=== PATIENT | male | born 1985 | race Caucasian/White ===

== ENCOUNTER → 2016-10-31 | Outpatient (REF) | payer OTHER ==
[2016-10-31 12:17] LABS: ADD MANUAL DIFFER YES; MEAN CORPUSCULAR HGB CONC 36.5 g/dl (32.0-36.5); MEAN CORPUSCULAR VOLUME 84.9 fl (80.0-96.0); RED CELL DISTRIBUTION WIDTH 13.2 % (11.5-14.5); WHITE BLOOD COUNT 7.8 K/mm3 (4.0-10.0)
[2016-10-31 13:03] LABS: HEPATITIS B SURFACE ANTIBODY POSITIVE (POSITIVE)
[2016-10-31 13:25] LABS: ALBUMIN 3.9 GM/DL (3.2-5.2); ALBUMIN/GLOBULIN RATIO 1.08 (1.00-1.93); ALKALINE PHOSPHATASE 76 U/L (45-117); ALT/SGPT 139 U/L (12-78); ANION GAP 8 MEQ/L (8-16); AST/SGOT 42 U/L (15-37); BILIRUBIN,TOTAL 0.3 MG/DL (0.2-1.0); BLOOD UREA NITROGEN 15 MG/DL (7-18); CALCIUM LEVEL 8.8 MG/DL (8.5-10.1); CARBON DIOXIDE LEVEL 24 MEQ/L (21-32); CHLORIDE LEVEL 109 MEQ/L (98-107); CREATININE FOR GFR 0.78 MG/DL (0.70-1.30); GLOMERULAR FILTRATION RATE > 60.0 (>60); GLUCOSE, FASTING 101 MG/DL (70-105); POTASSIUM SERUM 4.4 MEQ/L (3.5-5.1); SODIUM LEVEL 141 MEQ/L (136-145); TOTAL PROTEIN 7.5 GM/DL (6.4-8.2)
[2016-10-31 13:35] LABS: BASOPHILS 2 % (0-4); EOSINOPHILS 2 % (0-5)
[2016-11-05 00:06] LABS: ALT 126 IU/L (0-55); GGT 35 IU/L (0-65); HAPTOGLOBIN 111 mg/dL (34-200); HEPATITIS C QUANTITATION 149290 IU/mL (.); HEPATITIS C VIRUS GENOTYPE 3 (.); NECROINFLAM SCORE 0.58 (0.00-0.17); NECROINFLAMM GRADE A2-Moderate activity (.); TOTAL BILIRUBIN 0.2 mg/dL (0.0-1.2)
== END ==
LOC: M SFHCPLAZ 09:35
PROVIDERS: ATTEND Family Medicine
DX: B18.2 Chronic viral hepatitis C (principal)

== ENCOUNTER → 2020-04-26 | Outpatient (REF) | payer OTHER ==
[2020-04-27 10:48] LABS: BASO # 0.1 10^3/uL (0.0-0.2); BASO % 1.1 % (0.0-1.0); EOS # 0.1 10^3/uL (0.0-0.5); EOS % 1.6 % (0.0-3.0); HEMOGLOBIN 15.9 g/dl (13.5-17.5); LYMPH # 2.7 10^3/uL (1.5-5.0); LYMPH % 36.4 % (24.0-44.0); MEAN CORPUSCULAR HEMOGLOBIN 28.3 pg (27.0-33.0); MEAN CORPUSCULAR HGB CONC 32.4 g/dl (32.0-36.5); MEAN CORPUSCULAR VOLUME 87.3 fl (80.0-96.0); MONO # 0.7 10^3/uL (0.0-0.8); NEUTROPHILS # 3.7 10^3/uL (1.5-8.5); NEUTROPHILS % 50.6 % (36.0-66.0); RED BLOOD COUNT 5.61 10^6/uL (4.30-6.10); WHITE BLOOD COUNT 7.4 10^3/uL (4.0-10.0)
== END ==
LOC: M SFHCPLAZ 14:30
PROVIDERS: ATTEND Internal Medicine Infectious Disease
DX: B18.2 Chronic viral hepatitis C (principal)